=== PATIENT | female | born 2000 | race Caucasian/White ===

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

== ENCOUNTER → 2019-01-24 | Outpatient (CLI) | payer BC | LOC: COL.RAD 13:30 | DX: M51.26 Other intervertebral disc displacement, lumbar region (principal); R10.11 Right upper quadrant pain; R93.5 Abnormal findings on diagnostic imaging of other abdominal regions, including retroperitoneum; R11.0 Nausea; Z90.89 Acquired absence of other organs | CPT/HCPCS: Q9967 ==

== ENCOUNTER → 2019-02-14 | Outpatient (CLI) | payer BC | LOC: COL.RAD 09:51 | DX: R10.11 Right upper quadrant pain (principal); R11.0 Nausea; R93.5 Abnormal findings on diagnostic imaging of other abdominal regions, including retroperitoneum | CPT/HCPCS: A9537; J2805 ==